=== PATIENT | male | born 1970 | race African-American/Black ===

== ENCOUNTER 2018-08-24 21:30 | Emergency (ER) | payer OTHER ==
[2018-08-24 21:50] VITALS: BP 142/80; PULSE 80; TEMP 102.3; BMI 29.5
[2018-08-24] MEDS ORDERED: ACETAMINOPHEN 325 MG TABLET (FP) PO ONE (21:50)
--- NOTE | 2018-08-24 21:50 | PDOC ---
Rapid Medical Evaluation Medical Evaluation: I have performed a brief in-person evaluation of this patient. The patient presents with a chief complaint of: No sig PMH; c/o subjective fever , chills, cough, body aches from today Pertinent physical exam findings: In NAD I have ordered the following: tylenol, flu The patient will proceed to the ED for further evaluation. 08/24/18 21:47
[2018-08-24] MEDS ORDERED: ACETAMINOPHEN 325 MG TABLET (FP) ONE (22:23)
--- NOTE | 2018-08-25 01:01 | PDOC ---
History of Present Illness - General Chief Complaint: Cold Symptoms Stated Complaint: COLD SYMPTOMS Time Seen by Provider: 08/24/18 21:48 Past History - Past Medical History Allergies/Adverse Reactions: Allergies Allergy/AdvReac Type Severity Reaction Status Date / Time No Known Allergies Allergy Verified 08/24/18 21:48 Home Medications: Ambulatory Orders Azithromycin [Zithromax 250mg Tablets -] 250 mg PO UTDICT #6 tab 08/25/18 Oseltamivir Phosphate [Tamiflu] 75 mg PO BID 5 Days #10 capsule 08/25/18 COPD: No Other medical history: back problems - Suicide/Smoking/Psychosocial Hx Smoking History: Never smoked *Physical Exam - Vital Signs Last Vital Signs Temp Pulse Resp BP Pulse Ox 102.3 F H 80 18 142/80 100 08/24/18 21:48 08/24/18 21:48 08/24/18 21:48 08/24/18 21:48 08/24/18 21:48 Moderate Sedation - Procedure Monitoring Vital Signs: Procedure Monitoring Vital Signs Temperature 102.3 F H 08/24/18 21:48 Pulse Rate 80 08/24/18 21:48 Respiratory Rate 18 08/24/18 21:48 Blood Pressure 142/80 08/24/18 21:48 O2 Sat by Pulse Oximetry (%) 100 08/24/18 21:48 ED Treatment Course - Medications Given in the ED: ED Medications Discontinued Medications Generic Name Dose Route Start Last Admin Trade Name Colby PRN Reason Stop Dose Admin Acetaminophen 975 mg 08/24/18 21:50 08/24/18 22:24 Tylenol - PO 08/24/18 21:51 975 mg ONCE ONE Administration *DC/Admit/Observation/Transfer Diagnosis at time of Disposition: Influenza A - Discharge Dispostion Disposition: HOME Condition at time of disposition: Improved Decision to Admit order: No - Prescriptions Prescriptions: Azithromycin [Zithromax 250mg Tablets -] 250 mg PO UTDICT #6 tab Oseltamivir Phosphate [Tamiflu] 75 mg PO BID 5 Days #10 capsule - Referrals Referrals: [facility] [place] [Provider Group] - Patient Instructions Printed Discharge Instructions: Influenza Additional Instructions: Please take the antibiotics and the Tamiflu as directed. Please use Tylenol and Motrin for the pain. Please return to the ED if you have new or worsening symptoms. - Post Discharge Activity
--- NOTE | 2018-08-25 01:02 | PDOC ---
Attending Attestation - Resident Resident Name: Sahil Lainez - ED Attending Attestation I have performed the following: I have examined & evaluated the patient, The case was reviewed & discussed with the resident, I agree w/resident's findings & plan - HPI HPI: 08/25/18 01:22 47-year-old male with fever body aches and sinus congestion. Patient states I have the flu and a sinus infection. Sinus symptoms have been present for approximately 2 days. Flulike symptoms have been present for 1 day. There is no associated vomiting. - Physicial Exam PE: 08/25/18 01:22 Agree with resident's exam - Medical Decision Making 08/25/18 01:23 47 old nontoxic-appearing male with fever sinus congestion and flulike symptoms Influenza swab is positive Patient will be discharged on Tamiflu and azithromycin for sinus symptoms with primary care follow-up
== END 2018-08-25 01:45 | disposition home or self-care (01) ==
LOC: JERFT 21:30
DX: J09.X2 Influenza due to identified novel influenza A virus with other respiratory manifestations (principal)
CPT/HCPCS: 87804; 99281-25

== ENCOUNTER 2018-09-23 19:20 | Emergency (ER) | payer OTHER ==
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
[2018-09-23 19:53] VITALS: BP 128/78; PULSE 77; TEMP 97.7; BMI 28.5
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
== END 2018-09-23 21:49 | disposition home or self-care (01) ==
LOC: JERFT 19:20 → JER 19:20 → JERFT 21:49
DX: S39.012A Strain of muscle, fascia and tendon of lower back, initial encounter (principal); S16.1XXA Strain of muscle, fascia and tendon at neck level, initial encounter; V43.62XA Car passenger injured in collision with other type car in traffic accident, initial encounter; Y92.414 Local residential or business street as the place of occurrence of the external cause; Y93.89 Activity, other specified; Y99.8 Other external cause status
CPT/HCPCS: 72131-TC; 99281-25

== ENCOUNTER 2019-09-06 09:58 | Day surgery (SDC) | payer OTHER ==
[2019-09-03 17:07] VITALS: BMI 28.4
[2019-09-06 10:24] VITALS: TEMP 98.5
[2019-09-06] MEDS ORDERED: MIDAZOLAM HCL 2 MG/2 ML SINGLE DOSE VIAL ONE (11:25)
[2019-09-06] MEDS ORDERED: KETOROLAC TROMETHAMINE 30 MG/1 ML VIAL ONE (11:42)
[2019-09-06 12:20] VITALS: PULSE 62
--- NOTE | 2019-09-06 12:21 | OP ---
Operative Note - Note: Operative Date: 09/06/19 Pre-Operative Diagnosis: Left renal stone Operation: Left ESWL Findings: 6 mm mid pole Left renal stone Post-Operative Diagnosis: Same as Pre-op Surgeon: Sina Munoz Anesthesia: Fractional Estimated Blood Loss (mls): 0 Drains, Volume Out (mls): 0 Operative Report Dictated: Yes
[2019-09-06 13:41] VITALS: BP 122/62
--- NOTE | 2019-09-06 20:35 | OP ---
DATE OF OPERATION: 09/06/2019 PREOPERATIVE DIAGNOSIS: Left renal stone. POSTOPERATIVE DIAGNOSIS: Left renal stone. PROCEDURE: Left extracorporeal shock wave lithotripsy. ATTENDING: Irina Garcia MD ANESTHESIA: Fractional. DESCRIPTION OF OPERATION: Patient was brought in the operating room, placed in supine position on the operating room table. Ultrasonography and fluoroscopy were performed. A 6-mm left mid-pole renal stone was identified. At this point, anesthesia and preoperative antibiotics were administered. Shock wave lithotripsy was then started; 2500 impulses at 17 joules of power were administered to the stone with excellent fragmentation of the stone noted under real-time ultrasonography and fluoroscopy. There were no complications noted. The patient tolerated the procedure very well. IRINA GARCIA M.D. [id number]
== END 2019-09-06 13:51 | disposition home or self-care (01) ==
LOC: JASU-SURG 09:58
PROVIDERS: ATTEND Urology
PROC: 0TF4XZZ Fragmentation in Left Kidney Pelvis, External Approach (ICD-10-PCS; principal; 2019-09-06 11:45)
DX: N20.0 Calculus of kidney (principal)

== ENCOUNTER → 2021-01-08 | Day surgery (SDC) | payer OTHER ==
[2021-01-05 16:53] VITALS: BMI 29.9
[~2021-01-08] MED LIST: MIDAZOLAM HCL 2 MG/2 ML SINGLE DOSE VIAL ONE; PROPOFOL 20 ML ONE
[2021-01-08 18:04] VITALS: BP 119/68; PULSE 63; TEMP 98.8
== END | disposition home or self-care (01) ==
LOC: JASU-SURG 05:31
PROVIDERS: ATTEND Urology
PROC: 0TF4XZZ Fragmentation in Left Kidney Pelvis, External Approach (ICD-10-PCS; principal; 2021-01-08 14:30)
DX: N20.0 Calculus of kidney (principal)

== ENCOUNTER 2021-02-10 01:39 | Emergency (ER) | payer OTHER ==
[2021-02-10 01:59] VITALS: PULSE 78; TEMP 98.6; BMI 29.2
[2021-02-10 03:04] LABS: BASO % 0.4 % (0-2.0); EOS % 0.9 % (0-4.5); HEMOGLOBIN 12.8 GM/dL (11.7-16.9); LYMPH % 15.1 % (8-40); MCH 31.8 pg (25.7-33.7); MCHC 34.4 g/dl (32.0-35.9); MEAN CELL VOLUME 92.5 fl (80-96); MEAN PLT VOLUME 8.5 fl (7.5-11.1); MONO % 5.8 % (3.8-10.2); NEUT % 77.8 % (42.8-82.8); PLATELET COUNT 333 10^3/uL (134-434); RDW 13.7 % (11.9-15.9); WHITE BLOOD COUNT 10.9 K/mm3 (4.0-10.0)
[2021-02-10 03:25] LABS: BLOOD UREA NITROGEN 15.5 mg/dL (7-18); CALCIUM 8.1 mg/dL (8.5-10.1)
[2021-02-10 03:26] LABS: ALBUMIN 3.8 g/dl (3.4-5.0)
[2021-02-10 03:28] LABS: CREATININE 1.2 mg/dL (0.55-1.3)
[2021-02-10 03:30] LABS: BILIRUBIN,TOTAL 1.5 mg/dL (0.2-1); TOT PROT 7.6 g/dl (6.4-8.2)
[2021-02-10 03:39] LABS: URINE APPEARANCE CLEAR; URINE BILIRUBIN NEGATIVE (NEGATIVE); URINE COLOR YELLOW; URINE GLUCOSE (UA) NEGATIVE (NEGATIVE); URINE KETONE NEGATIVE (NEGATIVE); URINE LEUK ESTERASE NEGATIVE (NEGATIVE); URINE NITRITE NEGATIVE (NEGATIVE); URINE PROTEIN NEGATIVE (NEGATIVE); URINE UROBILINOGEN 0.2 mg/dL (0.2-1.0)
[2021-02-10 03:59] VITALS: BP 148/97
[2021-02-10 04:14] LABS: ANISOCYTOSIS 1+; MACROCYTOSIS 0; PLATELET ESTIMATE NORMAL
== END 2021-02-10 04:03 | disposition home or self-care (01) ==
LOC: JER 01:39
DX: K62.5 Hemorrhage of anus and rectum (principal)
CPT/HCPCS: 36415; 80053; 81003; 82272; 85025; 93005; 93010; 99283-25

== ENCOUNTER 2021-11-17 18:18 | Emergency (ER) | payer OTHER ==
[2021-11-17 18:26] VITALS: BP 132/84; PULSE 84; TEMP 99.9; BMI 28.5
[2021-11-19 00:06] LABS: SARS-CoV-2 NAA Not Detected (Not Detected)
== END 2021-11-17 20:00 | disposition home or self-care (01) ==
LOC: JER 18:18
DX: R05.1 Acute cough (principal)
CPT/HCPCS: 87804; 99283-25; C9803-CS; U0003; U0005

== ENCOUNTER 2024-04-26 04:14 | Day surgery (SDC) | payer OTHER ==
[2024-04-23 09:42] VITALS: BMI 28.5
[2024-04-26 14:31] VITALS: TEMP 97.6
[2024-04-26] MEDS ORDERED: MIDAZOLAM HCL 2 MG/2 ML SINGLE DOSE VIAL ONE (15:44)
[2024-04-26 18:02] VITALS: BP 128/85; PULSE 70; RESP 17
== END 2024-04-26 18:13 | disposition home or self-care (01) ==
LOC: JASU-SURG 04:14
PROVIDERS: ATTEND Urology
PROC: 0TF3XZZ Fragmentation in Right Kidney Pelvis, External Approach (ICD-10-PCS; principal; 2024-04-26 15:47)
DX: N20.0 Calculus of kidney (principal)